=== PATIENT | female | born 1960 | race Caucasian/White ===

== ENCOUNTER 2020-04-29 10:06 | Observation (INO) | payer OTHER, MEDICARE, SELFPAY ==
[2020-04-29] VITALS (13 sets, daily range): BP systolic 170–185; BP diastolic 70–108; PULSE 50–66; RESP 16–22; TEMP 35.9–37.1; O2SAT 95–98; BMI 21.4
--- NOTE | 2020-04-29 10:25 | XRR_ITS ---
PROCEDURE INFORMATION: Exam: XR Chest, 1 View Exam date and time: 04/29/2020 11:02 AM Age: 60 years old Clinical indication: Other: AMS; Rectal bleed; Patient HX: Rectal bleed. AMS TECHNIQUE: Imaging protocol: XR of the chest Views: 1 view. COMPARISON: No relevant prior studies available. FINDINGS: Lungs: There is emphysema. No focal peripheral lung consolidation, air bronchogram formation, or silhouette sign. Pleural space: No pleural effusion or pneumothorax. Heart/Mediastinum: The cardiac silhouette is not enlarged. Bones/joints: There is an S-shaped curvature of the thoracic spine. XR/XR chest 1V portable [id number] IMPRESSION: Emphysema.
--- NOTE | 2020-04-29 10:26 | ECG_ITS ---
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 Measurements Intervals [place] Rate: 56 P: 87 LA: 142 QRS: 18 QRSD: 88 T: 71 QT: 404 QTc: 390 Interpretive Statements SINUS BRADYCARDIA POSSIBLE RIGHT VENTRICULAR CONDUCTION DELAY [RSR (QR) IN V1/V2] NONSPECIFIC T-WAVE ABNORMALITY No previous ECG available for comparison Electronically Signed On 04-30-2020 0:09:42 CDT by Norris Modi M.D. [id number]
[2020-04-29] MEDS: sodium chloride 0.9% 500 ML IV (10:47)
[2020-04-29 11:10] LABS: Basophils % 0.4 %; Eosinophils # 0.3 10^3/uL (0.0-0.8); Hematocrit 46.1 % (37.0-47.0); Hemoglobin 15.3 g/dL (11.5-15.3); Lymphocytes # 1.4 10^3/uL (0.8-4.8); Lymphocytes % 15.9 %; Mean Corpuscular HGB Conc 33.2 g/dL (30.0-36.0); Mean Corpuscular Hemoglobin 30.8 pg (28.0-34.0); Mean Corpuscular Volume 92.9 fL (81-99); Mean Platelet Volume 10.7 fL (7.4-10.4); Monocytes # 0.5 10^3/uL (0.2-0.9); Monocytes % 5.3 %; Neutrophils # 6.67 10^3/uL (1.8-7.7); Neutrophils % 75.1 %; Nucleated Red Blood Cells % 0 %; Platelet Count 304 10^3/cmm (130-400); Red Blood Count 4.96 10^6/uL (4.1-5.3); Red Cell Distribution Width 12.5 % (12.1-15.1); White Blood Count 8.9 10^3/uL (4.0-10.0)
[2020-04-29 11:16] LABS: INR 0.89 (0.8-1.2)
--- NOTE | 2020-04-29 11:17 | CTR_ITS ---
PROCEDURE INFORMATION: Exam: CT Abdomen And Pelvis With Contrast Exam date and time: 04/29/2020 12:12 PM Age: 60 years old Clinical indication: Rectal bleeding TECHNIQUE: Imaging protocol: Computed tomography of the abdomen and pelvis with intravenous contrast. Radiation optimization: All CT scans at this facility use at least one of these dose optimization techniques: automated exposure control; mA and/or kV adjustment per patient size (includes targeted exams where dose is matched to clinical indication); or iterative reconstruction. Contrast material: VISI 320; Contrast volume: 75 ml; Contrast route: INTRAVENOUS (IV); COMPARISON: No relevant prior studies available. RADIATION DOSE METRICS: Total DLP (mGy-cm): 521.99 FINDINGS: Liver: The liver is homogeneous and is not enlarged. Gallbladder and bile ducts: No calcified gallstones, gallbladder wall thickening, or pericholecystic inflammation. No biliary ductal dilation. Pancreas: No pancreatic enlargement, peripancreatic inflammation, or ductal dilation. Spleen: The spleen is homogeneous and is not enlarged. Adrenals: The right adrenal gland is normal. There is a 1.9 cm left adrenal mass with nonspecific attenuation measurements on this post IV contrast scan. Kidneys and ureters: No hydronephrosis, nephrolithiasis, or renal mass. Stomach and bowel: There is colonic diverticulosis, without diverticulosis. However, the diverticular disease could be a source of lower gastrointestinal hemorrhage particularly given the fact that it is primarily in the distal colon. No chris intraluminal hemorrhage identified on this exam. No bowel obstruction. No bowel wall thickening. Appendix: The appendix has a normal caliber with no wall thickening. No periappendiceal stranding. Intraperitoneal space: No ascites or pneumoperitoneum. Vasculature: No abdominal aortic aneurysm. No iliac or common femoral artery aneurysm. The mesenteric arteries are patent. The mesenteric, portal, and hepatic veins are patent. Lymph nodes: No pathologically enlarged lymph nodes. Bladder: No urinary bladder calculus or wall thickening. Reproductive: Unremarkable as visualized. Bones/joints: No acute osseous abnormality. Soft tissues: No acute soft tissue abnormality. CT/CT abdomen pelvis w con* [id number] IMPRESSION: 1. Diverticulosis without diverticulitis. The diverticular disease could be a source of lower gastrointestinal hemorrhage. 2. Nonspecific left adrenal mass. Radiation Dose CTDIVOL = (mGy): DLP = 521.99 (mGy-cm)
[2020-04-29 11:21] LABS: Lactate (Lactic Acid level) 0.8 mmol/L (0.5-2.2)
[2020-04-29 11:22] LABS: Alanine Aminotransferase 24 U/L (0-33); Albumin Level 4.4 g/dL (3.5-5.2); Alkaline Phosphatase 44 IU/L (35-105); Anion Gap 14.5 (5-19); Aspartate Amino Transferase 16 U/L (0-32); Blood Urea Nitrogen 23 mg/dL (8-23); Calcium 10.3 mg/dL (8.5-10.5); Carbon Dioxide 26 mmol/L (22-29); Chloride 102 mmol/L (98-107); Globulin 2.2 g/dL (1.3-4.6); Glomerular Filtration Rate 28.5 mL/min (90-130); Glucose 77 mg/dL (65-115); Lipase 71 U/L (13-60); Osmolality Calculated 282 mOsm/kg (285-295); Potassium 4.5 mmol/L (3.5-5.1); Sodium 138 mmol/L (136-145); Total Bilirubin 0.5 mg/dL (0.15-1.2); Total Protein 6.6 g/dL (6.6-8.7)
[2020-04-29 11:24] LABS: Troponin(5th) Baseline 14 ng/L (0-10)
--- NOTE | 2020-04-29 11:34 | PC.NURSE ---
while at bedside pt is in nad. pt denies any further needs at this time. pt call light within reach side rail up x1 and bed locked in lowest position.
[2020-04-29 11:45] LABS: Add Urine Microscopic? YES; Bilirubin Urine Neg (NEGATIVE); Blood Urine Neg (Negative); Glucose Urine UA Norm (Normal); Ketones Urine Negative (Negative); Leukocyte Esterase Urine 1+ (Negative); Nitrate Urine Negative (Negative); Protein Urine Neg (Negative); Specific Gravity, Urine 1.005 (1.005-1.030); Urine Color Yellow (Yellow); Urobilinogen Urine Norm (Negative); pH Urine 7 (5-7)
[2020-04-29 11:47] LABS: RBC Urine 0-4 /hpf (0-2); Squamous Epithelial Cell Urine 25-40 (0-5); WBC Urine 25-40 /hpf (0-5)
[2020-04-29 11:48] LABS: Add Urine Culture? No; Bacteria Urine 1+; Mucus Urine TRACE
[2020-04-29] MEDS: iodixanol 320 mg/mL 100mL Btl IV (12:24)
--- NOTE | 2020-04-29 12:26 | ECG_ITS ---
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 Measurements Intervals [place] Rate: 49 P: 84 NV: 149 QRS: 8 QRSD: 96 T: 51 QT: 440 QTc: 401 Interpretive Statements SINUS BRADYCARDIA INCOMPLETE RIGHT BUNDLE BRANCH BLOCK [90+ ms QRS DURATION, TERMINAL R IN V1/V2, 40+ ms S IN I/aVL/V4/V5/V6] NONSPECIFIC T-WAVE ABNORMALITY Compared to ECG 04/29/2020 10:47:29 Incomplete right bundle-branch block now present T-wave abnormality still present Electronically Signed On 04-30-2020 1:38:38 CDT by Norris Modi M.D. [id number]
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
--- NOTE | 2020-04-29 12:40 | PC.NURSE ---
EKG done at 1235 and shown to ER doctor
[2020-04-29 13:17] LABS: Troponin 5 2HR 11.72 ng/L (0-10)
[2020-04-29 13:24] LABS: Troponin 5 2HR Delta -2.28 ABS# (0-10)
[2020-04-29] MEDS: sodium chloride 0.9% 1,000 ML 100 ML IV (14:03)
[2020-04-29] MEDS: metroNIDAZOLE IV 500 MG/100 ML PREMIX 100 MG IV ×2 (14:03→21:46)
--- NOTE | 2020-04-29 14:20 | PC.NURSE ---
report called to pina smith rn
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
--- NOTE | 2020-04-29 16:26 | ECG_ITS ---
[facility] Test Date: 2020-04-29 Pat Name: Tracy Mon Department: Room: 256 Gender: Female [employer]: : 1960 Requested By: Agusto Pelayo Order Number: [id number] Jordan MD: Norris Modi M.D. Measurements Intervals [place] Rate: 55 P: 40 ND: 135 QRS: 20 QRSD: 93 T: 30 QT: 421 QTc: 405 Interpretive Statements SINUS BRADYCARDIA INCOMPLETE RIGHT BUNDLE BRANCH BLOCK [90+ ms QRS DURATION, TERMINAL R IN V1/V2, 40+ ms S IN I/aVL/V4/V5/V6] NONSPECIFIC ST & T-WAVE ABNORMALITY Compared to ECG 04/29/2020 12:42:36 No significant changes Electronically Signed On 04-30-2020 1:39:12 CDT by Norris Modi M.D. [id number]
[2020-04-29] MEDS: pantoprazole 40 mg SDV IVP (16:30)
[2020-04-29] MEDS: ciprofloxacin 400 MG/200 ML PREMIX 200 MG IV (16:32)
[2020-04-29] MEDS: sodium chloride 0.45% 1,000 ML 100 ML IV (16:39)
[2020-04-29 17:50] LABS: Troponin 5 6HR 9.13 ng/L (0-10)
[2020-04-29 17:54] LABS: Troponin 5 6HR Delta -4.87 ng/L (0-12)
[2020-04-29] MEDS: metoprolol tartrate 25 mg Tablet PO (18:36)
[2020-04-29] MEDS: sodium chloride 0.9% 1,000 ML 30 ML IV (18:55)
--- NOTE | 2020-04-29 20:34 | PC.NURSE ---
SPINDLE CARVER reported automatic BP of 171/90, RN took manual BP and it was found to be 170/80
[2020-04-29] MEDS: peg /e-lyte soln 4,000 mL Btl 4000 ML PO (21:45)
[2020-04-30] VITALS: BP 160/77; PULSE 54; RESP 20; TEMP 36.4; O2SAT 97
[2020-04-30] MEDS: sodium chloride 0.9% 1,000 ML 30 ML IV (03:38)
[2020-04-30] MEDS: metroNIDAZOLE IV 500 MG/100 ML PREMIX 100 MG IV ×2 (03:38→08:46)
[2020-04-30] MEDS: pantoprazole 40 mg SDV IVP (03:39)
[2020-04-30 04:00] VITALS: BP 160/62; PULSE 54; RESP 20; TEMP 36.6; O2SAT 96
[2020-04-30] MEDS: ciprofloxacin 400 MG/200 ML PREMIX 200 MG IV (04:24)
[2020-04-30 05:21] LABS: Basophils % 0.4 %; Eosinophils # 0.2 10^3/uL (0.0-0.8); Eosinophils % 2.8 %; Hematocrit 44.7 % (37.0-47.0); Hemoglobin 14.9 g/dL (11.5-15.3); Lymphocytes # 1.4 10^3/uL (0.8-4.8); Mean Corpuscular HGB Conc 33.3 g/dL (30.0-36.0); Mean Corpuscular Hemoglobin 31.7 pg (28.0-34.0); Mean Corpuscular Volume 95.1 fL (81-99); Mean Platelet Volume 10.9 fL (7.4-10.4); Monocytes # 0.5 10^3/uL (0.2-0.9); Monocytes % 5.8 %; Neutrophils # 6.31 10^3/uL (1.8-7.7); Neutrophils % 74.8 %; Nucleated Red Blood Cells % 0 %; Platelet Count 271 10^3/cmm (130-400); Red Cell Distribution Width 12.4 % (12.1-15.1); White Blood Count 8.4 10^3/uL (4.0-10.0)
[2020-04-30 05:54] LABS: Anion Gap 12.1 (5-19); Blood Urea Nitrogen 16 mg/dL (8-23); Calcium 9.1 mg/dL (8.5-10.5); Carbon Dioxide 25 mmol/L (22-29); Chloride 106 mmol/L (98-107); Glomerular Filtration Rate 41.5 mL/min (90-130); Glucose 81 mg/dL (65-115); Osmolality Calculated 283 mOsm/kg (285-295); Potassium 4.1 mmol/L (3.5-5.1); Sodium 139 mmol/L (136-145)
[2020-04-30 08:00] VITALS: BP 156/79; PULSE 62; RESP 16; TEMP 36.6; O2SAT 95
--- NOTE | 2020-04-30 08:14 | PM.DCS ---
Discharge Providers Date of Admission: 04/29/20 12:54 Date of Discharge: April 30, 2020 Attending Provider at Admission: Nancy Nava MD Attending Provider at Discharge: Nancy Nava MD Diagnoses at Discharge Discharge Diagnosis (1) Acute GI bleeding: Status: Acute Problem details: -presents with hematochezia x 2 in background of diverticular disease; patient has photos of her stool; last episode was yesterday -has had prior GI workup with last colonoscopy in 2015 showing sigmoid diverticulosis -Normal hemoglobin currently at 15.3, continue to monitor H/H -Reviewed CT of the abdomen and pelvis showing diverticulosis without diverticulitis -Has been taking naproxen 500 mg twice daily as needed for pain control which will be held, no anticoagulation -Close monitoring of vital signs -Surgery consult appreciated; unable to tolerate prep so will have outpatient colonoscopy -tolerating full liquid diet -Antiemetics, pain control as needed -Received dose of ciprofloxacin and metronidazole in ED, continue this -blood cx: prelim negative -PPI IV BID -no episodes of blood in stool overnight (2) Diverticular disease: Status: Chronic Problem details: -as noted above (3) CKD (chronic kidney disease) stage 2, GFR 60-89 ml/min: Status: Acute Problem details: -has CKD stage 2-3 now with superimposed DANAE, renal function improved with IVF -baseline Cr wnl -avoid nephrotoxins, renally dose meds (4) Emphysema/COPD: Status: Chronic Problem details: -secondary to chronic smoking; quit in 2002 -supplemental oxygen not needed, not oxygen dependent at baseline Qualifiers: Emphysema type: unspecified Qualified Code(s): J43.9 - Emphysema, unspecified (5) Hypothyroidism: Status: Chronic Problem details: -resumed levothyroxine Qualifiers: Hypothyroidism type: unspecified Qualified Code(s): E03.9 - Hypothyroidism, unspecified (6) Osteoarthritis: Status: Chronic Problem details: -pain control as needed -ambulates independently Qualifiers: Osteoarthritis location: multiple joints Osteoarthritis type: other secondary Qualified Code(s): 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 She was also started on IV fluid hydration and surgery was consulted for possible colonoscopy evaluation. Unfortunately patient was unable to tolerate bowel prep with noted nausea and vomiting during attempt. Hemoglobin has remained stable and she has not had recurrent bleeding. As such she can follow-up as an outpatient for colonoscopy evaluation per my discussion with Dr. Willis. Urinalysis was indicative of infection though sample was contaminated. Fortunately antibiotic regimen used for GI infection covers for UTI as well. Given contaminated sample will be unable to get urine culture results. Blood culture is pending. She was also noted to have acute renal impairment which has responded well to IV fluid hydration with noted improvement in renal function this morning. She has been voiding independently without difficulty. Patient has been afebrile. Due to noted bradycardia beta-xiomara has been discontinued and she has been started on low-dose amlodipine for blood pressure control. She has consistently been on room air. She will require close follow-up with her primary care provider and outpatient follow-up with surgery will be arranged as well. She is advised to seek medical attention immediately should any of her symptoms recur. Naproxen has been discontinued. Discharge Summary: -Patient to follow-up with Dr. Cutler within 1 week -Patient to follow-up with Dr. Willis in 6 weeks to have outpatient colonoscopy Physical Exam Const: COMMON NORMALS: no acute distress and patient oriented x3 GENERAL APPEARANCE: cooperative and comfortable ORIENTATION/CONSCIOUSNESS: Yes awake OTHER: -looks younger than stated age HENMT: COMMON NORMALS: normocephalic, atraumatic, hearing grossly normal bilaterally and moist oral mucous membranes HEAD & SCALP: normocephalic and atraumatic Eye: COMMON NORMALS: Equal, round and reactive pupils present, EOMs intact bilaterally and conjunctivae normal CONJUNCTIVA: Yes conjunctivae normal PUPIL: Yes Equal, round and reactive pupils present Neck/C-Spine: COMMON NORMALS: full ROM GENERAL: Yes normal visual inspection and Yes trachea midline Resp: COMMON NORMALS: normal respiratory effort, No retractions, No use of accessory muscles and clear to auscultation bilaterally EFFORT & INSPECTION: Yes able to speak in complete sentences, Yes symmetric chest movement and No tachypneic AUSCULTATION: clear to auscultation bilaterally Cardio: COMMON NORMALS: regular rate, regular rhythm, S1 normal heart sound present, S2 normal heart sound present and No murmurs present (Cardio) RATE: regular rate RHYTHM: regular rhythm HEART SOUNDS: S1 normal heart sound present and S2 normal heart sound present GI: COMMON NORMALS: Normal to inspection, nondistended, normoactive bowel sounds present, Soft to palpation and non-tender PALPATION: Yes Soft to palpation Extremity: COMMON NORMALS: normal to inspection, full ROM, no clubbing, cyanosis or edema and no pedal edema NARRATIVE EXTREMITY EXAM: -healed scars from previous surgeries on bilateral LEs Neuro: COMMON NORMALS: patient oriented x3, moves all extremities, no focal motor deficits, no sensory deficits noted and gait normal Psych: COMMON NORMALS: mental status grossly normal, Normal thought process present, cooperative, normal affect and speech normal SPEECH: Yes normal speech THOUGHT PROCESS: Normal thought process present Skin: COMMON NORMALS: no rashes or lesions noted, no jaundice, no petechiae and no mottling GENERAL SKIN EXAM: no rashes or lesions noted Discharge Data Data Completed and Pending: Completed Studies During Hospitalization Category Date Time Status CT abdomen pelvis w con* [id number] Urge nt Cat Scan 04/29/20 11:17 Completed XR chest 1V nancy ble [id number] Urgent Exams 04/29/20 10:25 Completed Pending at discharge Category Date Time Status Blood Culture Sta t Lab 04/29/20 10:55 Results Labs from last 24 hours 04/30/20 04/30/20 04/29/20 04:30 04:30 16:52 WBC 8.4 RBC 4.70 Hgb 14.9 Hct 44.7 MCV 95.1 MCH 31.7 MCHC 33.3 RDW 12.4 Plt Count 271 MPV 10.9 H Neut % (Auto) 74.8 Lymph % (Auto) 16.0 [place] % (Auto) 5.8 Eos % (Auto) 2.8 Baso % (Auto) 0.4 Neut # (Auto) 6.31 Lymph # (Auto) 1.4 [place] # (Auto) 0.5 Eos # (Auto) 0.2 Baso # (Auto) 0.0 Nucleated RBC % (a uto) 0 Nucleated RBCs # 0.0 PT INR Sodium 139 Potassium 4.1 Chloride 106 Carbon Dioxide 25 Anion Gap 12.1 BUN 16 Creatinine 1.3 H GFR Calculation 41.5 L Glucose 81 Calculated Osmolal ity 283 L Lactate Calcium 9.1 Total Bilirubin AST ALT Alkaline Phosphata se Troponin T Baselin e Troponin T 120 Min [place] Troponin T Troponin T Hi Sens 6Hr 9.13 Troponin T Hi Sens 6Hr [place] -4.87 L Total Protein Albumin Globulin Lipase Urine Color Urine Appearance Urine pH Ur Specific Gravit y Urine Protein Urine Glucose (UA) Urine Ketones Urine Blood Urine Nitrate Urine Bilirubin Urine Urobilinogen Ur Leukocyte Court[place] ase Urine RBC Urine WBC Ur Squamous Epith Cells Amorphous Sediment Urine Bacteria Urine Mucus 04/29/20 04/29/20 04/29/20 12:40 11:26 10:55 WBC RBC Hgb Hct MCV MCH MCHC RDW Plt Count MPV Neut % (Auto) Lymph % (Auto) [place] % (Auto) Eos % (Auto) Baso % (Auto) Neut # (Auto) Lymph # (Auto) [place] # (Auto) Eos # (Auto) Baso # (Auto) Nucleated RBC % (a uto) Nucleated RBCs # PT INR Sodium Potassium Chloride Carbon Dioxide Anion Gap BUN Creatinine GFR Calculation Glucose Calculated Osmolal ity Lactate Calcium Total Bilirubin AST ALT Alkaline Phosphata se Troponin T Baselin e 14 H Troponin T 120 Min [place] 11.72 H Delta Troponin T -2.28 L Troponin T Hi Sens 6Hr Troponin T Hi Sens 6Hr [place] Total Protein Albumin Globulin Lipase Urine Color Yellow Urine Appearance Sl cloudy A Urine pH 7 Ur Specific Gravit y 1.005 Urine Protein Neg Urine Glucose (UA) Norm Urine Ketones Negative Urine Blood Neg Urine Nitrate Negative Urine Bilirubin Neg Urine Urobilinogen Norm Ur Leukocyte Courtney ase 1+ H Urine RBC 0-4 H Urine WBC 25-40 H Ur Squamous Epith Cells 25-40 H Amorphous Sediment Not Reportable Urine Bacteria 1+ H Urine Mucus Trace 04/29/20 04/29/20 04/29/20 10:55 10:55 10:55 WBC RBC Hgb Hct MCV MCH MCHC RDW Plt Count MPV Neut % (Auto) Lymph % (Auto) [place] % (Auto) Eos % (Auto) Baso % (Auto) Neut # (Auto) Lymph # (Auto) [place] # (Auto) Eos # (Auto) Baso # (Auto) Nucleated RBC % (a uto) Nucleated RBCs # PT 12.30 INR 0.89 Sodium 138 Potassium 4.5 Chloride 102 Carbon Dioxide 26 Anion Gap 14.5 BUN 23 Creatinine 1.8 H GFR Calculation 28.5 L Glucose 77 Calculated Osmolal ity 282 L Lactate 0.8 Calcium 10.3 Total Bilirubin 0.5 AST 16 ALT 24 Alkaline Phosphata se 44 Troponin T Baselin e Troponin T 120 Min [place] Troponin T Troponin T Hi Sens 6Hr Troponin T Hi Sens 6Hr [place] Total Protein 6.6 Albumin 4.4 Globulin 2.2 Lipase 71 H Urine Color Urine Appearance Urine pH Ur Specific Gravit y Urine Protein Urine Glucose (UA) Urine Ketones Urine Blood Urine Nitrate Urine Bilirubin Urine Urobilinogen Ur Leukocyte [place] ase Urine RBC Urine WBC Ur Squamous Epith Cells Amorphous Sediment Urine Bacteria Urine Mucus 04/29/20 10:55 WBC 8.9 RBC 4.96 Hgb 15.3 Hct 46.1 MCV 92.9 MCH 30.8 MCHC 33.2 RDW 12.5 Plt Count 304 MPV 10.7 H Neut % (Auto) 75.1 Lymph % (Auto) 15.9 [place] % (Auto) 5.3 Eos % (Auto) 3.0 Baso % (Auto) 0.4 Neut # (Auto) 6.67 Lymph # (Auto) 1.4 [place] # (Auto) 0.5 Eos # (Auto) 0.3 Baso # (Auto) 0.0 Nucleated RBC % (a uto) 0 Nucleated RBCs # 0.0 PT INR Sodium Potassium Chloride Carbon Dioxide Anion Gap BUN Creatinine GFR Calculation Glucose Calculated Osmolal ity Lactate Calcium Total Bilirubin AST ALT Alkaline Phosphata se Troponin T Baselin e Troponin T 120 Min [place] Troponin T Troponin T Hi Sens 6Hr Troponin T Hi Sens 6Hr [place] Total Protein Albumin Globulin Lipase Urine Color Urine Appearance Urine pH Ur Specific Gravit y Urine Protein Urine Glucose (UA) Urine Ketones Urine Blood Urine Nitrate Urine Bilirubin Urine Urobilinogen Ur Leukocyte [place] ase Urine RBC Urine WBC Ur Squamous Epith Cells Amorphous Sediment Urine Bacteria Urine Mucus Vitals: Last Vital Signs Temp 97.9 F 04/30/20 08:00 Pulse 62 04/30/20 08:00 Resp 16 04/30/20 08:00 BP 156/79 04/30/20 08:00 Pulse Ox 95 04/30/20 08:00 Discharge Plan Discharge Patient Disposition: Home, Self-Care Condition: Fair Prescriptions: New ciprofloxacin HCl 500 mg tablet 500 mg PO BID 7 Days Qty: 14 RF: 0 metronidazole 500 mg tablet 500 mg PO Q8H 7 Days Qty: 21 RF: 0 Continued medroxyprogesterone 2.5 mg tablet 2.5 mg PO DAILY RF: 0 acyclovir 800 mg tablet 800 mg PO TID PRN (Reason: unknown) RF: 0 calcium carbonate 600 mg calcium (1,500 mg) tablet 600 mg PO DAILY RF: 0 cholecalciferol (vitamin D3) 1 tab PO DAILY RF: 0 multivitamin with minerals [Hair,Skin and Nails] Tablet 3 tab PO DAILY RF: 0 Prolia 60 mg/mL syringe See Rx Instructions .ROUTE .COMPLEX RF: 0 bupropion HCl 150 mg tablet extended release 24 hr 300 mg PO DAILY RF: 0 levothyroxine 75 mcg tablet 75 mcg PO DAILY RF: 0 iron 325 mg (65 mg iron) Tablet 325 mg PO DAILY RF: 0 estrogens-methyltestosterone 1.25-2.5 mg Tablet 1 tab PO DAILY RF: 0 Discontinued naproxen 500 mg tablet 500 mg PO BID PRN (Reason: Pain) RF: 0 metoprolol tartrate 50 mg Tablet 25 mg PO BID RF: 0 Discharge Orders: Discharge Order (Routine); Ordered 04/30/20 Ordered By: Nancy Nava Referrals: Jakob Willis MD [Physician] - 6 Weeks (Follow up for colonoscopy after diverticular bleed. ) Mary Cutler DO [Family Provider] - 4-7 days (Post hospital discharge follow up. Treated for diverticular bleed, on antibiotics. Outpatient surgery f/u arranged. ) Discharge Diet: Advance as tolerated Discharge Activity: Increase activity as tolerated Discharge Attestations Time Spent in Discharge Care*: greater than 30 min Specific Discharge Activities: Specific discharge activities: educating patient, discussing with pcp/other providers, discussing with director of casework/social workers/dc planners, documenting/other paperwork and evaluating patient/reviewing data Status at Discharge: Cognitive status at discharge: cognitively intact, Behavioral status at discharge: cooperative and independent in ADL's, Functional status at discharge: independent ambulation Overall status at discharge: patient is progressing back to baseline Quality Metrics Clinical Quality Measures During this hospital stay, did patient experience: None Coding Level of Care Code Acute Joint Special Operations for [facility] Fwd Exam Comprehensive Diagnoses Acute GI bleeding K92.2 Diverticular disease K57.90 CKD (chronic kidney disease) stage 2, GFR 60-89 ml/min N18.2 Emphysema/COPD J43.9 Emphysema type: unspecified Hypothyroidism E03.9 Hypothyroidism type: unspecified Osteoarthritis M15.3 Osteoarthritis location: multiple joints Osteoarthritis type: other secondary Osteoporosis M81.8 Osteoporosis type: other Presence of current pathological fracture: without current pathological fracture
[2020-04-30] MEDS: levothyroxine 150 mcg Tablet 75 MCG PO (08:46)
[2020-04-30] MEDS: amlodipine 5 mg Tablet PO (08:47)
[2020-04-30] MEDS: cholecalciferol (vitamin D3) 1,000 unit Tablet 1000 UNIT PO (08:47)
[2020-04-30] MEDS: buPROPion XL (24 HR) 300 mg Tablet PO (08:47)
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
[2020-04-30 11:41] VITALS: BP 145/76; PULSE 60; RESP 16; TEMP 36.6; O2SAT 97
--- NOTE | 2020-04-30 12:44 | PC.RESP ---
Pulmonary Rehab information sent to patient.
[2020-04-30 14:21] VITALS: BP 145/76; PULSE 60; RESP 16; TEMP 36.6; O2SAT 97
== END 2020-04-30 14:30 | disposition home or self-care (01) ==
LOC: ER 12:54 → MEDSURG 13:52
PROVIDERS: Family Medicine; Admitting Provider Family Medicine; Family Provider Family Medicine; Visit Provider Family Medicine
DX: K57.33 Diverticulitis of large intestine without perforation or abscess with bleeding (principal); N18.3 Chronic kidney disease, stage 3 (moderate); J43.9 Emphysema, unspecified; E03.9 Hypothyroidism, unspecified; M81.8 Other osteoporosis without current pathological fracture; F32.9 Major depressive disorder, single episode, unspecified; Z82.49 Family history of ischemic heart disease and other diseases of the circulatory system; Z83.3 Family history of diabetes mellitus; Z87.891 Personal history of nicotine dependence; Z79.1 Long term (current) use of non-steroidal anti-inflammatories (NSAID)
CPT/HCPCS: 12345; 36415; 71045; 74177; 80048; 80053; 81001; 81003; 83605; 83690; 84484; 85025; 85610; 87040; 93005; 96361; 96365; 96367; 96375; 99283; 99285; C9113; G0378; J0744; J7030; J7040; Q9967; S0030

== ENCOUNTER 2020-06-25 10:15 | Outpatient (CLI) | payer OTHER, MEDICARE, SELFPAY | END 2020-06-25 23:00 | disposition home or self-care (01) | LOC: RAD 07-12 14:16 | PROVIDERS: Family Provider Family Medicine; Visit Provider Family Medicine | DX: K92.2 Gastrointestinal hemorrhage, unspecified (principal) | CPT/HCPCS: 87635 ==

== ENCOUNTER 2020-06-28 09:41 | Outpatient (CLI) | payer MEDICARE, SELFPAY ==
--- NOTE | 2020-06-28 10:17 | MM_ITS ---
WS: [id number] LEFT DIGITAL MAMMOGRAPHY WITH CAD CLINICAL INFORMATION: LT BREAST DENSITY HISTORY: COMPARISON: TECHNIQUE: 8 views of the left breast were obtained. FINDINGS: Left breast implant. The left breast is composed of heterogeneous fibroglandular density tissue, which can limit the detec tion of small underlying mass lesions. Lucent centered calcifications. Again seen is the ovoid densit y upper outer left breast not significantly changed from previous. Ultrasound is pending. ULTRASOUND BREAST LEFT TECHNIQUE: Ultrasound left breast focused area of concern. CLINICAL INFORMATION: LT BREAST DENSITY COMPARISON: None. FINDINGS: Ultrasound left breast the 12:00 position. Several simple cysts are identified the largest measuring 9.2 x 3.2 x 0.7 mm. Additional smaller cluster of cysts measuring 1.6 x 0.7 x 1.0 CM. Findings have a benign appearance. Recommend return to annual screening mammography. MM/[place] [id number] IMPRESSION: BI-RADS: 2-Benign FOLLOW UP: 1 Year Follow-up Recommend return to annual screening mammography.
== END 2020-06-28 09:42 | disposition home or self-care (01) ==
PROVIDERS: PCP Family Medicine; Visit Provider Family Medicine
DX: N63.25 Unspecified lump in the left breast, overlapping quadrants (principal); N60.02 Solitary cyst of left breast
CPT/HCPCS: 76642; 77065

== ENCOUNTER 2020-06-28 09:49 | Outpatient (CLI) | payer OTHER, MEDICARE, SELFPAY ==
--- NOTE | 2020-06-28 11:37 | US_ITS ---
WS: [id number] TRANSABDOMINAL PELVIC AND TRANSVAGINAL PELVIC ULTRASOUND HISTORY: ENLARGED UTERUS COMPARISON: None available. Uterus: 7.2 cm x 3.9 cm x 2.4 cm. Normal anteverted uterus. Heterogeneous myometrium. No definite mas s. Endometrium: 0.8 cm. Small amount of fluid along the endometrial canal. Right ovary: 1.6 cm x 1.0 cm x 0.8 cm. Small ovary. Normal vascularity. Left ovary: LEFT ovary is not visualized. No free fluid. US/US pelvic with transvaginal IMPRESSION: 1. Normal size uterus. 2. Small amount of fluid along the endometrial canal. No mass identified. 3. LEFT ovary not visualized.
== END 2020-06-28 09:50 | disposition home or self-care (01) ==
LOC: RAD 09:51
PROVIDERS: PCP Family Medicine; Visit Provider Family Medicine
DX: N85.2 Hypertrophy of uterus (principal)
CPT/HCPCS: 76830; 76856

== ENCOUNTER 2020-06-29 08:43 | Day surgery (SDC) | payer OTHER, MEDICARE, SELFPAY ==
[2020-06-25 13:13] VITALS: BMI 20.9
[2020-06-29 09:14] VITALS: BP 154/76; PULSE 65; RESP 18; TEMP 36.3; O2SAT 94
[2020-06-29] MEDS: sodium chloride 0.9% 1,000 ML 30 ML IV (09:39)
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
[2020-06-29 11:19] VITALS: BP 142/75; PULSE 54; RESP 16; TEMP 36.1; O2SAT 99
--- NOTE | 2020-06-29 11:27 | ANE.PACU2 ---
Inpatient post-anesthesia follow up: Airway intact: Yes Vital signs: Temperature 97 F Pulse Rate 54 Respiratory Rate 16 Blood Pressure 142/75 Pulse Oximetry 99 Oxygen Delivery Me thod Nasal Cannula Oxygen Flow Rate 3 Fraction of Inspir ed Oxygen Hydration adequate: Yes Nausea and vomiting: No Pain level: 1 Mental status: Baseline
[2020-06-29 11:38] VITALS: BP 150/91; PULSE 50; RESP 18; O2SAT 98
--- NOTE | 2020-07-01 13:16 | W.PM.OPSUD ---
Surgery/Procedure H&P Update DATE OF PROCEDURE: July 01, 2020 DATE H&P PERFORMED: 06/29/20 H&P UPDATE INFORMATION: I have reviewed H&P completed within last 30 days, I have examined patient prior to procedure and No changes to prior documentation PREOP DIAGNOSIS: Hematochezia PLANNED PROCEDURE: Operation Date: 06/29/20 10:00 Proposed Procedures p Colonoscopy(Not Applicable) - Jakob Willis MD
== END 2020-06-29 11:55 | disposition home or self-care (01) ==
PROVIDERS: Family Provider Family Medicine; Visit Provider Surgery
PROC: 0DJD8ZZ Inspection of Lower Intestinal Tract, Via Natural or Artificial Opening Endoscopic (ICD-10-PCS; CPT 45378; principal; 2020-06-29 10:00)
DX: K92.1 Melena (principal); K57.30 Diverticulosis of large intestine without perforation or abscess without bleeding; I12.9 Hypertensive chronic kidney disease with stage 1 through stage 4 chronic kidney disease, or unspecified chronic kidney disease; N18.3 Chronic kidney disease, stage 3 (moderate); J43.9 Emphysema, unspecified; E03.9 Hypothyroidism, unspecified; Z87.891 Personal history of nicotine dependence
CPT/HCPCS: 12345; 45378; J2704; J7030

== ENCOUNTER → 2020-09-06 10:39 | Outpatient (BNVA) | payer MEDICARE, OTHER, SELFPAY | PROVIDERS: Family Provider Family Medicine; Visit Provider Obstetrics & Gynecology | DX: N87.0 Mild cervical dysplasia (principal) | CPT/HCPCS: 88175 ==